=== PATIENT | female | born 1975 | race Caucasian/White ===

== ENCOUNTER 2017-04-03 14:57 | Emergency (ER) | payer MEDICARE, BC ==
[2017-04-03] MEDS ORDERED: Sodium Chloride 0.9% 1,000 ML IV ONE ×2 (15:07→20:06)
[2017-04-03] MEDS ORDERED: diphenhydrAMINE 50 MG/ML SDV IVPUSH ONE (15:07)
[2017-04-03] MEDS ORDERED: Sodium Chloride 0.9% 10 ML Syringe FLUSH PRN (15:08)
[2017-04-03] MEDS ORDERED: Ondansetron 4 MG/2 ML SDV IV ONE (15:08)
[2017-04-03] MEDS ORDERED: methylPREDNISolone Sodium Succinate 125 MG/2 ML SDV IVPUSH ONE (15:09)
--- NOTE | 2017-04-03 15:17 | EDM.PDOC ---
ED HPI GENERAL MEDICAL PROBLEM - General Chief Complaint: Abdominal Pain Stated Complaint: AMBULANCE Time Seen by Provider: 04/03/17 15:05 Source of Information: Reports: Patient, EMS History Limitations: Reports: No Limitations - History of Present Illness INITIAL COMMENTS - FREE TEXT/NARRATIVE: Patient comes emergency Department today by ambulance from home with complaints of generalized abdominal cramping and diarrhea. Patient has a long-standing history of lupus as well as ulcerative colitis. It feels like a typical ulcerative colitis flare for her. She has not had a ulcerative colitis flare for over a year. It started this morning. She has been unable to leave the bathroom as she has had continued diarrhea. She complains of generalized abdominal cramping. She did try some Bentyl at home without resolution. She has not had any fever or chills that is new to her. She denies any vomiting. Does complain of nausea. She denies any chest pain shortness of breath or difficulty breathing. She denies any flank pain. Denies any hematuria dysuria or urinary frequency. She has not been traveling anywhere recently nor has she been on any antibiotics recently. Onset: Today, Sudden Middle Abdomen Pain Score (Numeric/FACES): 6 - Related Data Allergies Allergy/AdvReac Type Severity Reaction Status Date / Time ciprofloxacin [From Cipro] Allergy Severe Anaphylactic Verified 10/20/15 19:17 Shock codeine Allergy Mild Rash Verified 04/03/17 15:07 venom-honey bee Allergy Anaphylactic Verified 10/20/15 19:17 [bee venom (honey bee)] Shock Home Meds: Home Meds Lansoprazole [Prevacid] 20 mg PO DAILY 02/25/13 [History] Metoprolol Succinate [Toprol XL 100mg] 100 mg PO DAILY PRN 02/25/13 [History] Nitrofurantoin Monohyd/M-Cryst [Macrobid 100 mg Capsule] 100 mg PO DAILY [History] Ondansetron [Zofran] 8 mg PO Q6H PRN 02/25/13 [History] fentaNYL [Duragesic] 75 each TD Q48H 02/25/13 [History] Cholecalciferol (Vitamin D3) [Vitamin D3] 50,000 unit PO ASDIRECTED 02/17/14 [ History] Potassium Chloride 20 meq PO TID 02/17/14 [History] Methotrexate Sodium [Methotrexate] 1 tab PO ASDIRECTED 05/06/15 [History] Promethazine HCl 1 tab PO Q6H PRN 07/31/14 [History] ALPRAZolam [Xanax] 1 mg PO DAILY PRN 10/21/15 [History] Dicyclomine [Bentyl] 20 mg PO QID PRN 10/21/15 [History] Gabapentin [Neurontin] 600 mg PO BID 10/21/15 [History] Nitroglycerin [Nitrostat] 0.4 mg SL Q5M PRN 10/21/15 [History] oxyCODONE HCl [Oxycodone HCl] 10 mg PO Q4HR PRN 10/21/15 [History] traZODone 200 mg PO BEDTIME 10/21/15 [History] Past Medical History HEENT History: Reports: Other (See Below) 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 Cardiovascular History: Reports: Heart Failure, Hypertension, Pacemaker, Other ( See Below) Other Cardiovascular History: Rodriguez parkinsons Respiratory History: Reports: None Gastrointestinal History: Reports: Colon Polyp, GERD, Other (See Below) Other Gastrointestinal History: ulcerative colitis Genitourinary History: Reports: Acute Renal Failure, Dialysis, Renal Calculus Other Genitourinary History: Has had "problems" with the right kidney [employer]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 Checks blood sugars due to Prednisone. Hematologic History: Reports: None Immunologic History: Reports: Immunosuppression, SLE, Other (See Below) ( Ulcerative colitis) Oncologic (Cancer) History: Reports: Hodgkin's Lymphoma Dermatologic History: Reports: None - Infectious Disease History Infectious Disease History: Reports: Chicken Pox - Past Surgical History Cardiovascular Surgical History: Reports: Cardiac Ablation, Pacer, Other (See Below) GI Surgical History: Reports: Cholecystectomy, Colon, Colonoscopy, EGD, Other ( See Below) Female Surgical History: Reports: Other (See Below) Musculoskeletal Surgical History: Reports: Other (See Below) Oncologic Surgical History: Reports: Other (See Below) Social & Family History - Family History Family Medical History: Noncontributory Cardiac: Reports: Arrhythmia, [place], Pacemaker Respiratory: Reports: COPD GI: Reports: Colon Polyps, Diverticulosis : Reports: None OBGYN: Reports: None Musculoskeletal: Reports: Arthritis Neurological: Reports: Alzheimers Disease, Other (See Below) Other Neurological Family History: females on dad's side Daniele messer. Started in their 40-50 Psychiatric: Reports: Anxiety Endocrine/Metabolic: Reports: Diabetes, type II Hematologic: Reports: None Immunologic: Reports: None Oncologic: Reports: Brain, Lung - Tobacco Use Smoking Status *Q: Never Smoker Years of Tobacco use: 4 Used Tobacco, but Quit: Yes Month Tobacco Last Used: 2 years Second Hand Smoke Exposure: No - Caffeine Use Caffeine Use: Reports: Soda - Alcohol Use Days Per Week of Alcohol Use: 0 - Recreational Drug Use Recreational Drug Use: No ED ROS GENERAL - Review of Systems Review Of Systems: ROS reveals no pertinent complaints other than HPI. ED EXAM, GI/ABD - Physical Exam Exam: See Below Exam Limited By: No Limitations General Appearance: Alert, Other (Quite pale.) Eyes: Bilateral: Normal Appearance, EOMI Ears: Normal External Exam, Normal Canal, Hearing Grossly Normal, Normal TMs Nose: Normal Inspection, Normal Mucosa Throat/Mouth: Normal Inspection, Normal Lips, Normal Teeth, Other (Lips are dry and cracked.) Head: Atraumatic, Normocephalic Neck: Normal Inspection, Supple, Non-Tender, Full Range of Motion Respiratory/Chest: No Respiratory Distress, Lungs Clear, Normal Breath Sounds, No Accessory Muscle Use Cardiovascular: Normal Peripheral Pulses, Regular Rate, Rhythm, No Edema, No Murmur, No Rub, Tachycardia (115) GI/Abdominal Exam: Soft, No Organomegaly, No Distention, Other (Generalized tenderness throughout.). No: Normal Bowel Sounds (Hyperactive), Distended, Guarding, Rigid, Rebound, Tender (Female) Exam: Deferred Rectal (Female) Exam: Deferred Back Exam: Normal Inspection. No: CVA Tenderness (L), CVA Tenderness (R) Extremities: Normal Inspection, Normal Range of Motion Neurological: Alert, Oriented Psychiatric: Normal Affect, Normal Mood Skin Exam: Dry, Intact, Cool, Pallor Lymphatic: No Adenopathy Course - Vital Signs Last Recorded V/S: Last Vital Signs Temp 36.6 C 04/03/17 18:55 Pulse 76 01/07/18 18:55 Resp 18 04/03/17 18:55 BP 81/46 L 04/03/17 18:55 Pulse Ox 91 L 04/03/17 18:55 - Orders/Labs/Meds Orders: Active Orders 24 hr Category Date Time Status Peripheral IV Care [RC] . DIRECTED Care 04/03/17 15:08 Active C DIFFICILE TOXIN BY PCR [MREF] Stat Lab 04/03/17 18:03 Received CULTURE BLOOD [BC] Stat Lab 04/03/17 19:35 Ordered CULTURE BLOOD [BC] Stat Lab 04/03/17 19:35 Ordered CULTURE STOOL [RM] Stat Lab 04/03/17 18:03 Received CULTURE URINE [RM] Stat Lab 04/03/17 19:29 Ordered SHIGA TOXIN 1 & 2 [MREF] Stat Lab 04/03/17 18:03 Received Sodium Chloride 0.9% @ 150 MLS/HR (1000ml) Med 04/03/17 19:30 Ordered Sodium Chloride 0.9% [Normal Saline] 1,000 ml IV ASDIRECTED Sodium Chloride 0.9% [Normal Saline] 1,000 ml Med 04/03/17 17:45 Active IV ASDIRECTED Sodium Chloride 0.9% [Saline Flush] Med 04/03/17 15:08 Active 10 ml FLUSH ASDIRECTED PRN cefTRIAXone [Rocephin] 1,000 mg Med 04/03/17 19:54 Ordered Sodium Chloride 0.9% [Normal Saline] 50 ml IV ONETIME Blood Culture x2 Reflex Set [OM.PC] Stat Oth 04/03/17 19:35 Ordered Peripheral IV Insertion Adult [OM.PC] Stat Oth 04/03/17 15:07 Ordered Medication Orders Sodium Chloride (Normal Saline) 1,000 mls @ 999 mls/hr IV ASDIRECTED [facility] Last Admin: 04/03/17 17:36 Dose: 999 mls/hr Sodium Chloride (Normal Saline) 1,000 mls @ 150 mls/hr IV ASDIRECTED [facility] Last Admin: 04/03/17 19:35 Dose: 150 mls/hr Ceftriaxone Sodium 1,000 mg/ (Sodium Chloride) 50 mls @ 100 mls/hr IV ONETIME ONE Stop: 04/03/17 20:23 Sodium Chloride (Saline Flush) 10 ml FLUSH ASDIRECTED PRN PRN Reason: Keep Vein Open Last Admin: 04/03/17 15:29 Dose: 10 ml Labs: Laboratory Tests 04/03/17 04/03/17 04/03/17 Range/Units 15:25 15:25 15:25 WBC 16.7 H (5.0-10.0) 10^3/uL RBC 5.03 (4.2-5.4) 10^6/uL Hgb 13.9 (12.0-16.0) g/dL Hct 43.5 (37.0-47.0) % MCV 86.5 (80-100) fL MCH 27.6 (27.0-34.0) pg MCHC 32.0 L (33.0-35.0) g/dL Plt Count 336 (150-450) 10^3/uL Neut % (Auto) 89.5 H (42.2-75.2) % Lymph % (Auto) 8.7 L (20.5-50.1) % [place] % (Auto) 1.6 L (2-8) % Eos % (Auto) 0.1 L (1.0-3.0) % Baso % (Auto) 0.1 (0.0-1.0) % ESR (0-20) mm/hr Sodium 137 (135-145) mmol/L Potassium 3.8 (3.6-5.0) mmol/L Chloride 102 (101-111) mmol/L Carbon Dioxide 24.0 (21.0-31.0) mmol/L Anion Gap 14.8 BUN 11 (7-18) mg/dL Creatinine 0.9 (0.6-1.3) mg/dL Est Cr Clr Drug Dosing 65.72 mL/min Estimated GFR (MDRD) > 60 BUN/Creatinine Ratio 12.22 Glucose 120 H (74-105) mg/dL Lactic Acid 2.4 H (0.5-2.2) mmol/L Calcium 9.3 (8.4-10.2) mg/dl Total Bilirubin 0.5 (0.2-1.0) mg/dL AST 34 (10-42) IU/L ALT 20 (10-60) IU/L Alkaline Phosphatase 76 (42-121) IU/L Creatine Kinase (26-174) IU/L C-Reactive Protein (0.0-1.3) mg/dL Total Protein 6.7 (6.7-8.2) g/dl Albumin 3.8 (3.2-5.5) g/dl Globulin 2.9 Albumin/Globulin Ratio 1.31 Urine Color (YELLOW) Urine Appearance (CLEAR) Urine pH (5.0-9.0) Ur Specific [place] (1.005-1.030) Urine Protein (NEGATIVE) Urine Glucose (UA) (NEGATIVE) Urine Ketones (NEGATIVE) Urine Occult Blood (NEGATIVE) Urine Nitrite (NEGATIVE) Urine Bilirubin (NEGATIVE) Urine Urobilinogen (0.2-1.0) mg/dL Ur Leukocyte Esterase (NEGATIVE) Urine RBC /HPF Urine WBC (0-5/HPF) /HPF Ur Epithelial Cells /HPF Calcium Oxalate Crystal /HPF Urine Bacteria (0-FEW/HPF) /HPF Urinalysis Comment Urine HCG, Qual 04/03/17 04/03/17 04/03/17 Range/Units 15:25 15:25 15:25 WBC (5.0-10.0) 10^3/uL RBC (4.2-5.4) 10^6/uL Hgb (12.0-16.0) g/dL Hct (37.0-47.0) % MCV (80-100) fL MCH (27.0-34.0) pg MCHC (33.0-35.0) g/dL Plt Count (150-450) 10^3/uL Neut % (Auto) (42.2-75.2) % Lymph % (Auto) (20.5-50.1) % [place] % (Auto) (2-8) % Eos % (Auto) (1.0-3.0) % Baso % (Auto) (0.0-1.0) % ESR 5 (0-20) mm/hr Sodium (135-145) mmol/L Potassium (3.6-5.0) mmol/L Chloride (101-111) mmol/L Carbon Dioxide (21.0-31.0) mmol/L Anion Gap BUN (7-18) mg/dL Creatinine (0.6-1.3) mg/dL Est Cr Clr Drug Dosing mL/min Estimated GFR (MDRD) BUN/Creatinine Ratio Glucose (74-105) mg/dL Lactic Acid (0.5-2.2) mmol/L Calcium (8.4-10.2) mg/dl Total Bilirubin (0.2-1.0) mg/dL AST (10-42) IU/L ALT (10-60) IU/L Alkaline Phosphatase (42-121) IU/L Creatine Kinase 78 (26-174) IU/L C-Reactive Protein < 0.5 (0.0-1.3) mg/dL Total Protein (6.7-8.2) g/dl Albumin (3.2-5.5) g/dl Globulin Albumin/Globulin Ratio Urine Color (YELLOW) Urine Appearance (CLEAR) Urine pH (5.0-9.0) Ur Specific [place] (1.005-1.030) Urine Protein (NEGATIVE) Urine Glucose (UA) (NEGATIVE) Urine Ketones (NEGATIVE) Urine Occult Blood (NEGATIVE) Urine Nitrite (NEGATIVE) Urine Bilirubin (NEGATIVE) Urine Urobilinogen (0.2-1.0) mg/dL Ur Leukocyte Esterase (NEGATIVE) Urine RBC /HPF Urine WBC (0-5/HPF) /HPF Ur Epithelial Cells /HPF Calcium Oxalate Crystal /HPF Urine Bacteria (0-FEW/HPF) /HPF Urinalysis Comment Urine HCG, Qual 04/03/17 04/03/17 Range/Units 19:09 19:09 WBC (5.0-10.0) 10^3/uL RBC (4.2-5.4) 10^6/uL Hgb (12.0-16.0) g/dL Hct (37.0-47.0) % MCV (80-100) fL MCH (27.0-34.0) pg MCHC (33.0-35.0) g/dL Plt Count (150-450) 10^3/uL Neut % (Auto) (42.2-75.2) % Lymph % (Auto) (20.5-50.1) % [place] % (Auto) (2-8) % Eos % (Auto) (1.0-3.0) % Baso % (Auto) (0.0-1.0) % ESR (0-20) mm/hr Sodium (135-145) mmol/L Potassium (3.6-5.0) mmol/L Chloride (101-111) mmol/L Carbon Dioxide (21.0-31.0) mmol/L Anion Gap BUN (7-18) mg/dL Creatinine (0.6-1.3) mg/dL Est Cr Clr Drug Dosing mL/min Estimated GFR (MDRD) BUN/Creatinine Ratio Glucose (74-105) mg/dL Lactic Acid (0.5-2.2) mmol/L Calcium (8.4-10.2) mg/dl Total Bilirubin (0.2-1.0) mg/dL AST (10-42) IU/L ALT (10-60) IU/L Alkaline Phosphatase (42-121) IU/L Creatine Kinase (26-174) IU/L C-Reactive Protein (0.0-1.3) mg/dL Total Protein (6.7-8.2) g/dl Albumin (3.2-5.5) g/dl Globulin Albumin/Globulin Ratio Urine Color Mary (YELLOW) Urine Appearance Turbid (CLEAR) Urine pH 5.0 (5.0-9.0) Ur Specific [place] 1.020 (1.005-1.030) Urine Protein >=300 H (NEGATIVE) Urine Glucose (UA) 100 H (NEGATIVE) Urine Ketones 40 H (NEGATIVE) Urine Occult Blood Trace-lysed H (NEGATIVE) Urine Nitrite Positive H (NEGATIVE) Urine Bilirubin Large H (NEGATIVE) Urine Urobilinogen >=8.0 H (0.2-1.0) mg/dL Ur Leukocyte Esterase Large H (NEGATIVE) Urine RBC 10-20 H /HPF Urine WBC 0-5 (0-5/HPF) /HPF Ur Epithelial Cells Moderate H /HPF Calcium Oxalate Crystal Few H /HPF Urine Bacteria Moderate H (0-FEW/HPF) /HPF Urinalysis Comment Urine HCG, Qual Negative Meds: Medications Generic Name Dose Route Start Last Admin Trade Name Freq PRN Reason Stop Dose Admin Sodium Chloride 1,000 mls @ 999 mls/hr 04/03/17 17:45 04/03/17 17:36 Normal Saline IV 999 mls/hr ASDIRECTED HERRERA Administration Sodium Chloride 1,000 mls @ 150 mls/hr 04/03/17 19:30 04/03/17 19:35 Normal Saline IV 150 mls/hr ASDIRECTED HERRERA Administration Ceftriaxone Sodium 1,000 mg/ 50 mls @ 100 mls/hr 04/03/17 19:54 Sodium Chloride IV 04/03/17 20:23 ONETIME ONE Sodium Chloride 10 ml 04/03/17 15:08 04/03/17 15:29 Saline Flush FLUSH 10 ml ASDIRECTED PRN Administration Keep Vein Open Discontinued Medications Generic Name Dose Route Start Last Admin Trade Name Freq PRN Reason Stop Dose Admin Diphenhydramine HCl 25 mg 04/03/17 15:07 04/03/17 15:35 Benadryl IVPUSH 04/03/17 15:08 25 mg ONETIME ONE Administration Hydromorphone HCl 1 mg 04/03/17 16:55 04/03/17 17:06 Dilaudid IVPUSH 04/03/17 16:56 1 mg ONETIME ONE Administration Hydromorphone HCl 1 mg 04/03/17 19:36 04/03/17 19:40 Dilaudid IVPUSH 04/03/17 19:37 1 mg ONETIME ONE Administration Sodium Chloride 1,000 mls @ 999 mls/hr 04/03/17 15:07 04/03/17 15:30 Normal Saline IV 04/03/17 16:07 999 mls/hr .BOLUS ONE Administration Ceftriaxone Sodium 2 mg/ 50 mls @ 100 mls/hr 04/03/17 19:31 Sodium Chloride IV 04/03/17 20:00 ONETIME ONE Ketorolac Tromethamine 30 mg 04/03/17 15:50 04/03/17 16:18 Toradol IVPUSH 04/03/17 15:51 30 mg ONETIME ONE Administration Methylprednisolone Sodium Succinate 125 mg 04/03/17 15:09 04/03/17 15:38 Solu-Medrol IVPUSH 04/03/17 15:10 125 mg ONETIME ONE Administration Ondansetron HCl 4 mg 04/03/17 15:08 04/03/17 15:31 Zofran IV 04/03/17 15:09 4 mg ONETIME ONE Administration Departure - Departure Time of Disposition: 20:00 Disposition: DC/Tfer to [facility] 02 Clinical Impression: Pyelonephritis, Dehydration Lupus (systemic lupus erythematosus) Qualifiers: Systemic lupus erythematosus type: unspecified Systemic lupus erythematosus organ involvement: unspecified Qualified Code(s): M32.9 - Systemic lupus erythematosus, unspecified Ulcerative colitis Qualifiers: Ulcerative colitis location: unspecified ulcerative colitis location Digestive disease complication type: unspecified complication Qualified Code(s): K51.919 - Ulcerative colitis, unspecified with unspecified complications - Discharge Information Forms: ED Department Discharge, Interfacility Transfer EMTALA ED Communication - Discussed Case With (1) Discussed Case With (1): Admitting Provider (Spoke with hospitalist here and he does not feel comfortable with admitting her here. Called and spoke with DR. Fernandez at [facility] in [place]. HPI ER COURSE findings and concerns were relayed to him. He accepted the patient in transfer. He does not want Gentamincin as the patient request only wants Rocephin given at this time.) - My Orders Last 24 Hours: My Active Orders 04/03/17 15:07 Peripheral IV Insertion Adult [OM.PC] Stat 04/03/17 15:08 Peripheral IV Care [RC] . DIRECTED Sodium Chloride 0.9% [Saline Flush] 10 ml FLUSH ASDIRECTED PRN 04/03/17 17:45 Sodium Chloride 0.9% [Normal Saline] 1,000 ml IV ASDIRECTED 04/03/17 18:03 C DIFFICILE TOXIN BY PCR [MREF] Stat CULTURE STOOL [RM] Stat SHIGA TOXIN 1 & 2 [MREF] Stat 04/03/17 19:29 CULTURE URINE [RM] Stat 04/03/17 19:30 Sodium Chloride 0.9% @ 150 MLS/HR (1000ml) Sodium Chloride 0.9% [Normal Saline] 1,000 ml IV ASDIRECTED 04/03/17 19:35 CULTURE BLOOD [BC] Stat CULTURE BLOOD [BC] Stat Blood Culture x2 Reflex Set [OM.PC] Stat 04/03/17 19:54 cefTRIAXone [Rocephin] 1,000 mg Sodium Chloride 0.9% [Normal Saline] 50 ml IV ONETIME - Assessment/Plan Last 24 Hours: My Active Orders 04/03/17 15:07 Peripheral IV Insertion Adult [OM.PC] Stat 04/03/17 15:08 Peripheral IV Care [RC] . DIRECTED Sodium Chloride 0.9% [Saline Flush] 10 ml FLUSH ASDIRECTED PRN 04/03/17 17:45 Sodium Chloride 0.9% [Normal Saline] 1,000 ml IV ASDIRECTED 04/03/17 18:03 C DIFFICILE TOXIN BY PCR [MREF] Stat CULTURE STOOL [RM] Stat SHIGA TOXIN 1 & 2 [MREF] Stat 04/03/17 19:29 CULTURE URINE [RM] Stat 04/03/17 19:30 Sodium Chloride 0.9% @ 150 MLS/HR (1000ml) Sodium Chloride 0.9% [Normal Saline] 1,000 ml IV ASDIRECTED 04/03/17 19:35 CULTURE BLOOD [BC] Stat CULTURE BLOOD [BC] Stat Blood Culture x2 Reflex Set [OM.PC] Stat 04/03/17 19:54 cefTRIAXone [Rocephin] 1,000 mg Sodium Chloride 0.9% [Normal Saline] 50 ml IV ONETIME Assessment:: PYelonephritis of a immunocomprimised patient. End Stage SLE Ulcerative Collitis-?acute flare. Dehydration. Plan: Urine and blood cultures pending on transfer. Transfer to [facility] Dr. Fernandez he requested rocephin to be started. Continue IV fluids, Ambulance to [facility].
[2017-04-03] MEDS ORDERED: Ketorolac 30 MG/ML SDV IVPUSH ONE (15:50)
[2017-04-03 16:06] LABS: CHLORIDE,CL 102 mmol/L (101-111); SODIUM,NA 137 mmol/L (135-145)
[2017-04-03] MEDS ORDERED: HYDROmorphone 1 MG/ML Syringe IVPUSH ONE ×2 (16:55→19:36)
[2017-04-03] MEDS ORDERED: Sodium Chloride 0.9% 1,000 ML IV SCH ×2 (17:45→19:30)
[2017-04-03] MEDS ORDERED: cefTRIAXone 1,000 MG in Sodium Chloride 0.9% 50 ML IV ONE (19:54)
[2017-04-03] MEDS ORDERED: cefTRIAXone 1 GM Vial IVPUSH ONE (19:57)
[2017-04-03 20:00] VITALS: BP 88/64
== END 2017-04-03 20:40 ==
LOC: DL.ED 14:57
DX: M32.15 Tubulo-interstitial nephropathy in systemic lupus erythematosus (principal); M32.9 Systemic lupus erythematosus, unspecified; K51.919 Ulcerative colitis, unspecified with unspecified complications; E86.0 Dehydration; I11.0 Hypertensive heart disease with heart failure; I50.9 Heart failure, unspecified; Z88.1 Allergy status to other antibiotic agents; Z88.5 Allergy status to narcotic agent; Z91.030 Bee allergy status; Z79.899 Other long term (current) drug therapy
CPT/HCPCS: 36415; 80053; 81001; 81025; 82550; 83605; 85025; 85651; 86140; 87040; 87045; 87046; 87086; 87493; 87899; 96361; 96374; 96375; 96376; 99285; J0696; J1170; J1200; J1885; J2405; J2930; J7030; J7050; 87077; 87186

== ENCOUNTER 2017-09-06 17:45 | Emergency (ER) | payer BC, MEDICARE ==
[2017-09-06 18:02] VITALS: BP 133/89
--- NOTE | 2017-09-06 18:59 | EDM.PDOC ---
Scribed by Pamela Cramer 09/06/17 [id number] for Osmin Marcum MD ED HPI GENERAL MEDICAL PROBLEM - General Chief Complaint: Lower Extremity Injury/Pain Stated Complaint: [id number] RT FOOT- FELL Time Seen by Provider: 09/06/17 18:17 Source of Information: Reports: Patient, RN, RN Notes Reviewed History Limitations: Reports: No Limitations - History of Present Illness INITIAL COMMENTS - FREE TEXT/NARRATIVE: Patient presents to ER with complaint of left ankle pain sustained about 4 hours when patient stepped on an uneven depression in the lawn. Denies any other injury. She has a history of a prior broken ankle but she does not recall which one. Onset: Today Duration: Getting Worse Location: Reports: Lower Extremity, Left Quality: Reports: Ache Severity: Moderate Improves with: Reports: None Worsens with: Reports: None Associated Symptoms: Reports: No Other Symptoms Left Ankle Pain Score (Numeric/FACES): 7 - Related Data Allergies Allergy/AdvReac Type Severity Reaction Status Date / Time ciprofloxacin [From Cipro] Allergy Severe Anaphylactic Verified 10/20/15 19:17 Shock codeine Allergy Mild Rash Verified 04/03/17 15:07 venom-honey bee Allergy Anaphylactic Verified 10/20/15 19:17 [bee venom (honey bee)] Shock Home Meds: Home Meds Lansoprazole [Prevacid] 20 mg PO DAILY 02/25/13 [History] Metoprolol Succinate [Toprol XL 100mg] 100 mg PO DAILY PRN 02/25/13 [History] Nitrofurantoin Monohyd/M-Cryst [Macrobid 100 mg Capsule] 100 mg PO DAILY [History] Ondansetron [Zofran] 8 mg PO Q6H PRN 02/25/13 [History] fentaNYL [Duragesic] 75 each TD Q48H 02/25/13 [History] Cholecalciferol (Vitamin D3) [Vitamin D3] 50,000 unit PO ASDIRECTED 02/17/14 [ History] Potassium Chloride 20 meq PO TID 02/17/14 [History] Methotrexate Sodium [Methotrexate] 1 tab PO ASDIRECTED 07/31/14 [History] Promethazine HCl 1 tab PO Q6H PRN 07/31/14 [History] ALPRAZolam [Xanax] 1 mg PO DAILY PRN 10/21/15 [History] Dicyclomine [Bentyl] 20 mg PO QID PRN 10/21/15 [History] Gabapentin [Neurontin] 600 mg PO BID 10/21/15 [History] Nitroglycerin [Nitrostat] 0.4 mg SL Q5M PRN 10/21/15 [History] oxyCODONE HCl [Oxycodone HCl] 10 mg PO Q4HR PRN 10/21/15 [History] traZODone 200 mg PO BEDTIME 10/21/15 [History] Past Medical History HEENT History: Reports: Other (See Below) 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 Cardiovascular History: Reports: Heart Failure, Hypertension, Pacemaker, Other ( See Below) Other Cardiovascular History: Rodriguez parkinsons Respiratory History: Reports: None Gastrointestinal History: Reports: Colon Polyp, GERD, Other (See Below) Other Gastrointestinal History: ulcerative colitis Genitourinary History: Reports: Acute Renal Failure, Dialysis, Renal Calculus Other Genitourinary History: Has had "problems" with the right kidney 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 Checks blood sugars due to Prednisone. Hematologic History: Reports: None Immunologic History: Reports: Immunosuppression, SLE, Other (See Below) Oncologic (Cancer) History: Reports: Hodgkin's Lymphoma Dermatologic History: Reports: None - Infectious Disease History Infectious Disease History: Reports: Chicken Pox - Past Surgical History Cardiovascular Surgical History: Reports: Cardiac Ablation, Pacer, Other (See Below) GI Surgical History: Reports: Cholecystectomy, Colon, Colonoscopy, EGD, Other ( See Below) Female Surgical History: Reports: Other (See Below) Musculoskeletal Surgical History: Reports: Other (See Below) Oncologic Surgical History: Reports: Other (See Below) Social & Family History - Family History Family Medical History: Noncontributory Cardiac: Reports: Arrhythmia, DC, Pacemaker Respiratory: Reports: COPD GI: Reports: Colon Polyps, Diverticulosis : Reports: None OBGYN: Reports: None Musculoskeletal: Reports: Arthritis Neurological: Reports: Alzheimers Disease, Other (See Below) Other Neurological Family History: females on dad's side Daniele messer. Started in their 40-50 Psychiatric: Reports: Anxiety Endocrine/Metabolic: Reports: Diabetes, type II Hematologic: Reports: None Immunologic: Reports: None Oncologic: Reports: Brain, Lung - Tobacco Use Smoking Status *Q: Never Smoker - Caffeine Use Caffeine Use: Reports: Soda - Recreational Drug Use Recreational Drug Use: No - Living Situation & Occupation Living situation: Reports: with Family Review of Systems - Review of Systems Review Of Systems: ROS reveals no pertinent complaints other than HPI. ED EXAM, GENERAL - Physical Exam Exam: See Below Exam Limited By: No Limitations General Appearance: Other (chronically ill appearing.) Head: Atraumatic, Normocephalic Neck: Full Range of Motion Respiratory/Chest: No Respiratory Distress Extremities: No Pedal Edema, Normal Capillary Refill, Joint Swelling (mild left ankle with lateral tenderness to palpation. No visible bruising. Skin is intact. ), Limited Range of Motion (left ankle) Neurological: Alert, Oriented, No Motor/Sensory Deficits Course - Vital Signs Last Recorded V/S: Last Vital Signs Temp 37.1 C 09/06/17 18:01 Pulse 130 H 09/06/17 18:01 Resp 18 09/06/17 18:01 BP 133/89 09/06/17 18:01 Pulse Ox 100 09/06/17 18:01 - Radiology Interpretation Free Text/Narrative:: Left ankle x-ray: No fracture seen. See rad report. Departure - Departure Time of Disposition: 18:55 Disposition: Home, Self-Care 01 Condition: Good Clinical Impression: Ankle sprain Qualifiers: Encounter type: initial encounter Involved ligament of ankle: unspecified ligament Laterality: left Qualified Code(s): S93.402A - Sprain of unspecified ligament of left ankle, initial encounter - Discharge Information Instructions: Ankle Sprain, [id number] Referrals: PCP,None [Primary Care Provider] - Forms: ED Department Discharge Additional Instructions: Rest, ice and elevate to reduce swelling. Use crutches and Erick wrap as needed for comfort. Follow up in clinic if not improving as expected in 7 to 10 days. I have read and agree with the documentation that has been completed regarding this visit. By signing this record, I attest that the documentation was completed in my physical presence and is an accurate record of the encounter.
== END 2017-09-06 19:06 | disposition home or self-care (01) ==
LOC: DL.ED 17:45
DX: S93.402A Sprain of unspecified ligament of left ankle, initial encounter (principal); I11.0 Hypertensive heart disease with heart failure; I50.9 Heart failure, unspecified; E03.9 Hypothyroidism, unspecified; Z88.1 Allergy status to other antibiotic agents; Z88.5 Allergy status to narcotic agent; Z91.030 Bee allergy status; Z79.899 Other long term (current) drug therapy; X58.XXXA Exposure to other specified factors, initial encounter
CPT/HCPCS: 73610-LT; 99283

== ENCOUNTER 2017-12-13 13:54 | Emergency (ER) | payer BC, MEDICARE ==
--- NOTE | 2017-12-13 14:32 | EDM.PDOC ---
<MarlaLee Galina - Last Filed: 12/13/17 18:44> ED HPI GENERAL MEDICAL PROBLEM - General Chief Complaint: Gastrointestinal Problem Stated Complaint: COLITIS FLARE UP [phone] Time Seen by Provider: 12/13/17 14:20 Source of Information: Reports: Patient History Limitations: Reports: No Limitations - History of Present Illness INITIAL COMMENTS - FREE TEXT/NARRATIVE: This 42 yo female patient reports to the ED with increased abdominal pain, bloating and a fever. The patient has a history of ulcerative colitis, normally has 20 small bowel movements per day, but has not had a bowel movement in 2 weeks. The patient reports she has been taking her medications, but has not been getting any symptom relief. The patient reports she attempted to do enemas at home yesterday, but was unsuccessful. The patient reports that she did spike a fever at home (103) and took some ibuprofen which brought her temp down. The patient reports she has noticed the increased bloating of her abdomen over the past week, but the pain has gotten too bad for her to manage on her own. The patient reports that she has not been able to eat anything for the past several days due to her current symptoms. Onset: Gradual Duration: Week(s):, Constant, Getting Worse Location: Reports: Abdomen Quality: Reports: Ache, Sharp Severity: Severe Improves with: Reports: None Worsens with: Reports: None Associated Symptoms: Reports: Nausea/Vomiting Upper Abdomen Pain Score (Numeric/FACES): 5 - Related Data Allergies Allergy/AdvReac Type Severity Reaction Status Date / Time ciprofloxacin [From Cipro] Allergy Severe Anaphylactic Verified 12/13/17 14:01 Shock codeine Allergy Mild Rash Verified 12/13/17 14:01 venom-honey bee Allergy Anaphylactic Verified 12/13/17 14:01 [bee venom (honey bee)] Shock Home Meds: Home Meds Lansoprazole [Prevacid] 20 mg PO DAILY 02/25/13 [History] Metoprolol Succinate [Toprol XL 100mg] 100 mg PO DAILY PRN 02/25/13 [History] Nitrofurantoin Monohyd/M-Cryst [Macrobid 100 mg Capsule] 100 mg PO DAILY [History] Ondansetron [Zofran] 8 mg PO Q6H PRN 02/25/13 [History] fentaNYL [Duragesic] 75 each TD Q48H 02/25/13 [History] Cholecalciferol (Vitamin D3) [Vitamin D3] 50,000 unit PO ASDIRECTED 02/17/14 [ History] Potassium Chloride 20 meq PO TID 02/17/14 [History] Methotrexate Sodium [Methotrexate] 1 tab PO ASDIRECTED 07/31/14 [History] Promethazine HCl 1 tab PO Q6H PRN 07/31/14 [History] ALPRAZolam [Xanax] 1 mg PO DAILY PRN 10/21/15 [History] Dicyclomine [Bentyl] 20 mg PO QID PRN 10/21/15 [History] Gabapentin [Neurontin] 600 mg PO BID 10/21/15 [History] Nitroglycerin [Nitrostat] 0.4 mg SL Q5M PRN 10/21/15 [History] oxyCODONE HCl [Oxycodone HCl] 10 mg PO Q4HR PRN 10/21/15 [History] traZODone 200 mg PO BEDTIME 10/21/15 [History] Bisacodyl [Dulcolax] 10 mg PO BID PRN 12/13/17 [History] Docusate Sodium [Colace] 200 mg PO BID PRN 12/13/17 [History] Indomethacin [Indocin] 0 mg PO DAILY 12/13/17 [History] Past Medical History HEENT History: Reports: Other (See Below) 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 Cardiovascular History: Reports: Heart Failure, Hypertension, Pacemaker, Other ( See Below) Other Cardiovascular History: Rodriguez parkinsons Respiratory History: Reports: None, Cystic Fibrosis Gastrointestinal History: Reports: Colon Polyp, GERD, Other (See Below) Other Gastrointestinal History: ulcerative colitis Genitourinary History: Reports: Acute Renal Failure, Renal Calculus Other Genitourinary History: Has had "problems" with the right kidney 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 Checks blood sugars due to Prednisone. Hematologic History: Reports: None Immunologic History: Reports: Immunosuppression, SLE, Other (See Below) Oncologic (Cancer) History: Reports: Hodgkin's Lymphoma Dermatologic History: Reports: None - Infectious Disease History Infectious Disease History: Reports: Chicken Pox - Past Surgical History Cardiovascular Surgical History: Reports: Cardiac Ablation, Pacer, Other (See Below) GI Surgical History: Reports: Cholecystectomy, Colon, Colonoscopy, EGD, Other ( See Below) Social & Family History - Family History Family Medical History: Noncontributory Cardiac: Reports: Arrhythmia, [place], Pacemaker Respiratory: Reports: COPD GI: Reports: Colon Polyps, Diverticulosis : Reports: None OBGYN: Reports: None Musculoskeletal: Reports: Arthritis Neurological: Reports: Alzheimers Disease, Other (See Below) Other Neurological Family History: females on dad's side Daniele alzheimernannette. Started in their 40-50 Psychiatric: Reports: Anxiety Endocrine/Metabolic: Reports: Diabetes, type II Hematologic: Reports: None Immunologic: Reports: None Oncologic: Reports: Brain, Lung - Tobacco Use Smoking Status *Q: Never Smoker - Caffeine Use Caffeine Use: Reports: Soda - Recreational Drug Use Recreational Drug Use: No - Living Situation & Occupation Living situation: Reports: with Family ED ROS GENERAL - Review of Systems Review Of Systems: ROS reveals no pertinent complaints other than HPI. ED EXAM, GI/ABD - Physical Exam Exam: See Below Exam Limited By: No Limitations General Appearance: Alert, WD/WN, Severe Distress Eyes: Bilateral: Normal Appearance, EOMI Ears: Normal External Exam, Normal Canal, Hearing Grossly Normal, Normal TMs Nose: Normal Inspection, Normal Mucosa, No Blood Throat/Mouth: Normal Inspection, Normal Lips, Normal Teeth, Normal Gums, Normal Oropharynx, Normal Voice, No Airway Compromise Head: Atraumatic, Normocephalic Neck: Normal Inspection, Supple, Non-Tender, Full Range of Motion Respiratory/Chest: No Respiratory Distress, Lungs Clear, Normal Breath Sounds, No Accessory Muscle Use, Chest Non-Tender Cardiovascular: No Edema, No Gallop, No JVD, No Murmur, No Rub, Tachycardia GI/Abdominal Exam: Distended, Tender, Abnormal Bowel Sounds (Hypoactive) (Female) Exam: Deferred Rectal (Female) Exam: Deferred Back Exam: Normal Inspection, Full Range of Motion, NT Extremities: Normal Inspection, Normal Range of Motion, Non-Tender, Normal Capillary Refill, No Pedal Edema Neurological: Alert, Oriented, CN II-XII Intact, Normal Cognition, Normal Gait, Normal Reflexes, No Motor/Sensory Deficits Psychiatric: Normal Affect, Normal Mood Skin Exam: Warm, Dry, Intact, Normal Color, No Rash Lymphatic: No Adenopathy Course - Vital Signs Last Recorded V/S: Last Vital Signs Temp 100.2 F 12/13/17 22:35 Pulse 104 H 12/13/17 22:35 Resp 18 12/13/17 22:35 BP 107/58 L 12/13/17 22:35 Pulse Ox 98 12/13/17 22:35 - Orders/Labs/Meds Labs: Laboratory Tests 12/13/17 12/13/17 12/13/17 Range/Units 14:47 14:47 14:47 WBC (5.0-10.0) 10^3/uL RBC (4.2-5.4) 10^6/uL Hgb (12.0-16.0) g/dL Hct (37.0-47.0) % MCV (80-100) fL MCH (27.0-34.0) pg MCHC (33.0-35.0) g/dL Plt Count (150-450) 10^3/uL Neut % (Auto) (42.2-75.2) % Lymph % (Auto) (20.5-50.1) % [place] % (Auto) (2-8) % Eos % (Auto) (1.0-3.0) % Baso % (Auto) (0.0-1.0) % Sodium (135-145) mmol/L Potassium (3.6-5.0) mmol/L Chloride (101-111) mmol/L Carbon Dioxide (21.0-31.0) mmol/L Anion Gap BUN (7-18) mg/dL Creatinine (0.6-1.3) mg/dL Est Cr Clr Drug Dosing mL/min Estimated GFR (MDRD) BUN/Creatinine Ratio Glucose (74-105) mg/dL Lactic Acid 1.5 (0.5-2.2) mmol/L Calcium (8.4-10.2) mg/dl Total Bilirubin (0.2-1.0) mg/dL AST (10-42) IU/L ALT (10-60) IU/L Alkaline Phosphatase (42-121) IU/L Troponin I (0.00-0.02) ng/ml C-Reactive Protein 5.0 H (0.0-1.3) mg/dL Total Protein (6.7-8.2) g/dl Albumin (3.2-5.5) g/dl Globulin Albumin/Globulin Ratio Amylase 37 (28-100) U/L Lipase 19 L (22-51) U/L 12/13/17 12/13/17 Range/Units 14:47 14:47 WBC 16.6 H (5.0-10.0) 10^3/uL RBC 4.50 (4.2-5.4) 10^6/uL Hgb 11.8 L D (12.0-16.0) g/dL Hct 37.0 (37.0-47.0) % MCV 82.2 D (80-100) fL MCH 26.2 L (27.0-34.0) pg MCHC 31.9 L (33.0-35.0) g/dL Plt Count 327 (150-450) 10^3/uL Neut % (Auto) 84.6 H (42.2-75.2) % Lymph % (Auto) 6.4 L (20.5-50.1) % [place] % (Auto) 7.9 (2-8) % Eos % (Auto) 1.0 (1.0-3.0) % Baso % (Auto) 0.1 (0.0-1.0) % Sodium 134 L (135-145) mmol/L Potassium 3.5 L (3.6-5.0) mmol/L Chloride 100 L (101-111) mmol/L Carbon Dioxide 25.0 (21.0-31.0) mmol/L Anion Gap 12.5 BUN 9 (7-18) mg/dL Creatinine 0.8 (0.6-1.3) mg/dL Est Cr Clr Drug Dosing 77.33 mL/min Estimated GFR (MDRD) > 60 BUN/Creatinine Ratio 11.25 Glucose 112 H (74-105) mg/dL Lactic Acid (0.5-2.2) mmol/L Calcium 8.5 (8.4-10.2) mg/dl Total Bilirubin 0.2 (0.2-1.0) mg/dL AST 22 (10-42) IU/L ALT 16 (10-60) IU/L Alkaline Phosphatase 91 (42-121) IU/L Troponin I < 0.02 (0.00-0.02) ng/ml C-Reactive Protein (0.0-1.3) mg/dL Total Protein 7.4 (6.7-8.2) g/dl Albumin 3.8 (3.2-5.5) g/dl Globulin 3.6 Albumin/Globulin Ratio 1.06 Amylase (28-100) U/L Lipase (22-51) U/L Meds: Medications Discontinued Medications Generic Name Dose Route Start Last Admin Trade Name Freq PRN Reason Stop Dose Admin Alprazolam 0.5 mg 12/13/17 20:42 12/13/17 20:48 Xanax PO 12/13/17 20:43 0.5 mg ONETIME ONE Administration Hydromorphone HCl 1 mg 12/13/17 14:58 12/13/17 15:04 Dilaudid IVPUSH 12/13/17 14:59 1 mg ONETIME ONE Administration Hydromorphone HCl 1 mg 12/13/17 16:36 12/13/17 16:41 Dilaudid IVPUSH 12/13/17 16:37 1 mg ONETIME ONE Administration Hydromorphone HCl 1 mg 12/13/17 18:19 12/13/17 18:25 Dilaudid IVPUSH 12/13/17 18:20 1 mg ONETIME ONE Administration Hydromorphone HCl 1 mg 12/13/17 22:12 12/13/17 22:27 Dilaudid IVPUSH 12/13/17 22:13 1 mg ONETIME ONE Administration Sodium Chloride 1,000 mls @ 999 mls/hr 12/13/17 14:42 12/13/17 14:48 Normal Saline IV 12/13/17 15:42 999 mls/hr .BOLUS ONE Administration Sodium Chloride 1,000 mls @ 100 mls/hr 12/13/17 16:00 12/13/17 22:41 Normal Saline IV 0 mls/hr ASDIRECTED HERRERA Infusion Iopamidol 75 ml 12/13/17 15:23 12/13/17 15:45 Isovue-300 (61%) IVPUSH 12/13/17 15:24 75 ml ONETIME ONE Administration Ondansetron HCl 4 mg 12/13/17 22:19 12/13/17 22:24 Zofran IV 12/13/17 22:20 4 mg ONETIME ONE Administration Departure - Departure Disposition: DC/[facility]fer to [facility] 02 Clinical Impression: Constipation Ulcerative colitis Qualifiers: Ulcerative colitis location: unspecified ulcerative colitis location Digestive disease complication type: unspecified complication Qualified Code(s): K51.919 - Ulcerative colitis, unspecified with unspecified complications - Discharge Information Referrals: PCP,Not In Area [Primary Care Provider] - Forms: ED Department Discharge <Larisa Good - Last Filed: 12/15/17 00:13> Course - Re-Assessments/Exams Free Text/Narrative Re-Assessment/Exam: No results from small volume enemas. Continued abdominal cramping. 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 TC Dr. Amber Aguirre accepting of patient for further evaluation and management. Tx via [facility]. Departure - Departure Time of Disposition: 23:50 Condition: Undetermined
[2017-12-13] MEDS ORDERED: Sodium Chloride 0.9% 1,000 ML IV ONE (14:42)
[2017-12-13] MEDS ORDERED: HYDROmorphone 1 MG/ML Syringe IVPUSH ONE ×4 (14:58→22:12)
[2017-12-13 15:15] LABS: ANION GAP 12.5; CHLORIDE,CL 100 mmol/L (101-111); SODIUM,NA 134 mmol/L (135-145)
[2017-12-13] MEDS ORDERED: Iopamidol 612 MG/ML 75 ML Bottle IVPUSH ONE (15:23)
[2017-12-13] MEDS ORDERED: Sodium Chloride 0.9% 1,000 ML IV SCH (16:00)
--- NOTE | 2017-12-13 16:21 | CT ---
Clinical history: 42 year old 174 pound female with significant past medical history ulcerative colit is, Hodgkins lymphoma, "renal cancer", kidney stones, heart disease and now abdominal pain/bloating ( no bowel movement for 2 weeks). Patient denies oral ingestion of Pepto-Bismol or barium contrast agen ts. Scan technique: Volume acquisition of data from the abdomen and pelvis obtained without oral after in travenous ministration 75 cc nonionic contrast (2 cc/s via injector) while patient was lying supine o n the Siemens multi slice scanner [place], [place]. All data archived in the PACS system for storage, reformatting axial/sagittal/coronal planes and study. Interpretation: 1. Cardiac pacer leads. Surgical clips gallbladder fossa. Normal caliber aortoiliac vessels. Lumbar s pine unremarkable. 2. *Large volume of stool filling the entire colon with positive contrast concentrated in the descend ing left and rectosigmoid colon. 3. No pelvic or abdominal mass lesion, inflammatory "dirty" peritoneal fat, retroperitoneal lymphaden opathy, signs of mechanical large/small bowel obstruction, ascites or free intraperitoneal air. 4. Liver, stomach, spleen, atrophic pancreas, adrenal glands and kidneys unremarkable. No renal corti darvin mass lesion, nephrolithiasis (stones) or signs of obstructive uropathy. Normal uterus right of mi dline. Symmetric normal urinary bladder. 5. No ventral wall or inguinal hernias. 6. *Patchy atelectasis or developing infiltrate right lower lobe. Clinical? CONCLUSION: Severe obstipation and rectal impaction. No signs of mechanical small bowel obstruction. No renal mass lesion or intraperitoneal abnormality. Asymmetric patchy density right lung base.
[2017-12-13] MEDS ORDERED: ALPRAZolam 0.5 MG Tab PO ONE (20:42)
[2017-12-13] MEDS ORDERED: Ondansetron 4 MG/2 ML SDV IV ONE (22:19)
[2017-12-13 22:45] VITALS: BP 107/58
== END 2017-12-13 22:35 ==
LOC: DL.ED 13:54
DX: K51.919 Ulcerative colitis, unspecified with unspecified complications (principal); K59.00 Constipation, unspecified; E03.9 Hypothyroidism, unspecified; Z88.1 Allergy status to other antibiotic agents; Z88.5 Allergy status to narcotic agent; Z91.030 Bee allergy status; Z79.899 Other long term (current) drug therapy
CPT/HCPCS: 36415; 74177; 80053; 82150; 83605; 83690; 84484; 85025; 86140; 87040; 93005; 96365; 96366; 96375; 96376; 99285; A9270; J1170; J2405; J7030; Q9967; 93010

== ENCOUNTER 2019-04-15 10:32 | Emergency (ER) | payer BC, MEDICARE ==
[2019-04-15 11:01] VITALS: BP 112/71; PULSE 129
[2019-04-15] MEDS ORDERED: Sodium Chloride 0.9% 10 ML Syringe FLUSH PRN (11:07)
[2019-04-15] MEDS ORDERED: Sodium Chloride 0.9% 1,000 ML IV ONE (12:32)
[2019-04-15] MEDS ORDERED: HYDROmorphone 1 MG/ML Syringe IVPUSH ONE (12:32)
[2019-04-15 12:35] LABS: ANION GAP 14.7; CHLORIDE,CL 100 mmol/L (101-111); SODIUM,NA 137 mmol/L (135-145)
--- NOTE | 2019-04-15 13:59 | CT ---
EXAMINATION: Abdomen Pelvis wo Cont SEX: Female AGE: 44 years CLINICAL HISTORY: 44-year-old 155 pound female with complex medical history (lupus erythematosus, Hodgkin's disease, ulcerative colitis) dehydration, ABDOMINAL PAIN and now WBC 13,500 (history "kidney stones" and cholecystectomy). Scan technique: Volume acquisition of data emergency unenhanced CT scan abdomen and pelvis obtained (without oral or IV contrast) while patient was lying supine on the Siemens multislice scanner [place], [place]. All data archived in the PACS system for storage, reformatting axial/sagittal/coronal planes and study. Interpretation: Abnormal. 1. Positive contrast (?) and stool identified throughout the course of normal caliber colon. No sign of pelvic or abdominal mass lesion, mesenteric or retroperitoneal lymphadenopathy, mechanical small bowel obstruction or free intraperitoneal air. Note: There is free fluid (ASCITES) in the dependent right paracolic "gutter" and pelvis. Normal midline uterus. Multiple small physiologic follicular type cysts identified in the larger right ovary. Recent cyst rupture? 2. Surgical clips gallbladder fossa RUQ. Unenhanced stomach, spleen, pancreas, and adrenal glands unremarkable. Focal irregular low-attenuation LESION, anteriorly upper pole, right lobe of the liver (cyst? Abscess?) Coronal #13 unenhanced liver. Note: This intrahepatic lesion was not present on previous, comparison, exam 12 March 2018. Interval biopsy? LFTs? 3. Cardiac pacemaker. Normal cardiac silhouette. Lung bases clear. 4. Symmetric normal reniform size, axis and configuration. No cystic/solid renal cortical mass lesion, nephrolithiasis or signs of obstructive uropathy (pyelocaliectasis) on these unenhanced images of the kidneys. Phleboliths in the pelvis. Normal bladder. 5. Normal caliber abdominal aorta. No aneurysm or dissection. Marginal spondylosis but spine otherwise unremarkable. Conclusion: Cardiac pacemaker. New intrahepatic lesion right lobe of the liver (since comparison exam February 2018). Small amount of ascitic fluid pelvis. Positive contrast normal caliber colon.
[2019-04-15] MEDS ORDERED: HYDROmorphone 1 MG/ML Syringe IM ONE (14:31)
--- NOTE | 2019-04-15 14:36 | EDM.PDOC ---
Scribed by Pamela Cramer 04/15/19 [id number] for Carey Charles NP ED HPI GENERAL MEDICAL PROBLEM - General Chief Complaint: Genitourinary Problem Stated Complaint: GENERAL Time Seen by Provider: 04/15/19 11:00 Source of Information: Reports: Patient, RN, RN Notes Reviewed History Limitations: Reports: No Limitations - History of Present Illness INITIAL COMMENTS - FREE TEXT/NARRATIVE: Patient presents to ER with complaint of flare up of ulcerative colitis and recent kidney infection. States she has a bacteria that is only susceptible to Gentamicin. She was seen by Loren Paredes in clinic on 03/17/19. She was prescribed 7 days of Gentamicin. Patient states usually takes 14-21 days. Sepsis last year 3-4 times. Colitis flare up began a few days ago. She has had fever, chills, nausea, vomiting, diarrhea, burning, frequency, and urgency with urination. No chest pains or shortness of breath. Onset: Gradual Duration: Getting Worse Location: Reports: Abdomen, Back Quality: Reports: Ache Severity: Severe Improves with: Reports: None Worsens with: Reports: None Associated Symptoms: Reports: No Other Symptoms Right Flank Pain Score (Numeric/FACES): 6 - Related Data Allergies Allergy/AdvReac Type Severity Reaction Status Date / Time ciprofloxacin [From Cipro] Allergy Severe Anaphylactic Verified 03/21/19 11:20 Shock codeine Allergy Mild Rash Verified 03/21/19 11:20 egg Allergy Hives Verified 03/21/19 11:20 venom-honey bee Allergy Anaphylactic Verified 03/21/19 11:20 [bee venom (honey bee)] Shock Home Meds: Home Meds Metoprolol Succinate [Toprol XL 100mg] 50 mg PO DAILY PRN 02/25/13 [History] Ondansetron [Zofran] 8 mg PO Q4H PRN 02/25/13 [History] fentaNYL [Duragesic] 75 mcg TD Q48H 02/25/13 [History] Cholecalciferol (Vitamin D3) [Vitamin D3] 100,000 unit PO MOWEFR 02/17/14 [ History] Potassium Chloride 20 meq PO TID 02/17/14 [History] Methotrexate Sodium [Methotrexate] 7.5 mg PO .Wednesdays07/31/14 [History] Promethazine HCl 25 mg PO TID PRN 07/31/14 [History] Dicyclomine [Bentyl] 20 mg PO QID PRN 10/21/15 [History] Gabapentin [Neurontin] 600 mg PO BID 10/21/15 [History] Nitroglycerin [Nitrostat] 0.4 mg SL Q5M PRN 10/21/15 [History] oxyCODONE HCl [Oxycodone HCl] 10 mg PO Q4HR PRN 10/21/15 [History] traZODone 200 mg PO BEDTIME 10/21/15 [History] Ascorbic Acid [Vitamin C] 1,000 mg PO DAILY 03/12/18 [History] Melatonin/Pyridoxine HCl (B6) [Melatonin Tr 10 mg Tablet] 50 mg PO BEDTIME 03/12 [History] Acetaminophen [Tylenol] 650 mg PO Q4H PRN tablet 03/19/18 [Rx] Budesonide [Entocort EC] 9 mg PO DAILY 03/21/19 [History] Cyclobenzaprine [Flexeril] 10 mg PO Q8HR PRN 03/21/19 [History] Furosemide [Lasix] 20 mg PO DAILY PRN 03/21/19 [History] Ibuprofen [Motrin] 600 mg PO Q4H 03/21/19 [History] Modafinil 200 mg PO ASDIRECTED PRN 03/21/19 [History] Multivitamin with Minerals [Multivitamins with Minerals] 1 tab PO DAILY [History] Sodium Bicarbonate 650 mg PO DAILY 03/21/19 [History] predniSONE [Prednisone] 20 mg PO DAILY 03/21/19 [History] Past Medical History HEENT History: Reports: Other (See Below) 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 Cardiovascular History: Reports: Heart Failure, Pacemaker, Other (See Below) Other Cardiovascular History: Rodriguez parkinsons Respiratory History: Reports: Cystic Fibrosis Gastrointestinal History: Reports: Colon Polyp, GERD, Other (See Below) Other Gastrointestinal History: ulcerative colitis Genitourinary History: Reports: Acute Renal Failure, Renal Calculus Other Genitourinary History: Has had "problems" with the right kidney [employer]IL[employer] BURNER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 Checks blood sugars due to Prednisone. Hematologic History: Reports: None Immunologic History: Reports: Immunosuppression, SLE Oncologic (Cancer) History: Reports: Hodgkin's Lymphoma, Renal Dermatologic History: Reports: None, Other (See Below) Other Dermatologic History: undiagnosed rash - Infectious Disease History Infectious Disease History: Reports: Chicken Pox, Influenza - Past Surgical History Cardiovascular Surgical History: Reports: Cardiac Ablation, Pacer GI Surgical History: Reports: Cholecystectomy, Colon, Colonoscopy, EGD Female Surgical History: Reports: Other (See Below) Other Female Surgeries/Procedures: kidney repair Endocrine Surgical History: Reports: None Neurological Surgical History: Reports: None Oncologic Surgical History: Reports: None Dermatological Surgical History: Reports: None Social & Family History - Family History Family Medical History: Noncontributory Cardiac: Reports: Arrhythmia, SC, Pacemaker Respiratory: Reports: COPD GI: Reports: Colon Polyps, Diverticulosis : Reports: None OBGYN: Reports: None Musculoskeletal: Reports: Arthritis Neurological: Reports: Alzheimers Disease, Other (See Below) Other Neurological Family History: females on dad's side [email or web address]. Started in their 40-50 Psychiatric: Reports: Anxiety Endocrine/Metabolic: Reports: Diabetes, type II Hematologic: Reports: None Immunologic: Reports: None Oncologic: Reports: Brain, Lung - Caffeine Use Caffeine Use: Reports: None - Living Situation & Occupation Living situation: Reports: with Family ED ROS GENERAL - Review of Systems Review Of Systems: Comprehensive ROS is negative, except as noted in HPI. ED EXAM, RENAL/ - Physical Exam Exam: See Below Exam Limited By: No Limitations General Appearance: Other (pale) Eye Exam: Bilateral Eye: EOMI, Normal Inspection, PERRL Ears: Normal External Exam, Normal Canal, Hearing Grossly Normal, Normal TMs Nose: Normal Inspection, Normal Mucosa, No Blood Throat/Mouth: Normal Inspection, Normal Lips, Normal Teeth, Normal Gums, Normal Oropharynx, Normal Voice, No Airway Compromise Head: Atraumatic, Normocephalic Neck: Normal Inspection, Supple, Non-Tender, Full Range of Motion Respiratory/Chest: Lungs Clear (and diminished) Cardiovascular: Normal Peripheral Pulses, Regular Rate, Rhythm, No Edema, No Gallop, No JVD, No Murmur, No Rub GI/Abdominal: Tender (Female) Exam: Deferred Rectal (Female) Exam: Deferred Back Exam: CVA Tenderness (R) Extremities: Normal Inspection, Normal Range of Motion, Non-Tender, Normal Capillary Refill, No Pedal Edema Neurological: Alert, Oriented, CN II-XII Intact, Normal Cognition, Normal Gait, Normal Reflexes, No Motor/Sensory Deficits Psychiatric: Normal Affect, Normal Mood Skin Exam: Other (pale) Lymphatic: No Adenopathy Course - Vital Signs Last Recorded V/S: Last Vital Signs Temp 98.0 F 04/15/19 10:37 Pulse 129 H 04/15/19 10:37 Resp 18 04/15/19 10:37 BP 112/71 04/15/19 10:37 Pulse Ox 99 04/15/19 10:37 - Orders/Labs/Meds Orders: Active Orders 24 hr Category Date Time Status Peripheral IV Care [RC] . DIRECTED Care 04/15/19 11:08 Active CULTURE BLOOD [BC] Stat Lab 04/15/19 11:08 Ordered CULTURE BLOOD [BC] Stat Lab 04/15/19 11:57 Results CULTURE URINE [RM] Urgent Lab 04/15/19 11:28 Received Sodium Chloride 0.9% [Saline Flush] Med 04/15/19 11:07 Active 10 ml FLUSH ASDIRECTED PRN Blood Culture x2 Reflex Set [OM.PC] Stat Oth 04/15/19 11:07 Ordered Peripheral IV Insertion Adult [OM.PC] Stat Oth 04/15/19 11:07 Ordered Medication Orders Sodium Chloride (Saline Flush) 10 ml FLUSH ASDIRECTED PRN PRN Reason: Keep Vein Open Labs: Laboratory Tests 04/15/19 04/15/19 04/15/19 Range/Units 11:28 11:28 11:57 WBC 13.0 H (5.0-10.0) 10^3/uL RBC 4.69 (4.2-5.4) 10^6/uL Hgb 12.6 D (12.0-16.0) g/dL Hct 38.3 (37.0-47.0) % MCV 81.7 (80-100) fL MCH 26.9 L (27.0-34.0) pg MCHC 32.9 L (33.0-35.0) g/dL Plt Count 347 (150-450) 10^3/uL Neut % (Auto) 84.5 H (42.2-75.2) % Lymph % (Auto) 9.9 L (20.5-50.1) % [place] % (Auto) 5.3 (2-8) % Eos % (Auto) 0.2 L (1.0-3.0) % Baso % (Auto) 0.1 (0.0-1.0) % Sodium (135-145) mmol/L Potassium (3.6-5.0) mmol/L Chloride (101-111) mmol/L Carbon Dioxide (21.0-31.0) mmol/L Anion Gap BUN (7-18) mg/dL Creatinine (0.6-1.3) mg/dL Est Cr Clr Drug Dosing mL/min Estimated GFR (MDRD) BUN/Creatinine Ratio Glucose (74-105) mg/dL Lactic Acid (0.5-2.0) mmol/L Calcium (8.4-10.2) mg/dl Total Bilirubin (0.2-1.0) mg/dL AST (10-42) IU/L ALT (10-60) IU/L Alkaline Phosphatase (42-121) IU/L Total Protein (6.7-8.2) g/dl Albumin (3.2-5.5) g/dl Globulin Albumin/Globulin Ratio Urine Color Dark yellow (YELLOW) Urine Appearance Clear (CLEAR) Urine pH 6.0 (5.0-9.0) Ur Specific [place] >= 1.030 (1.005-1.030) Urine Protein 100 H (NEGATIVE) Urine Glucose (UA) Negative (NEGATIVE) Urine Ketones Trace H (NEGATIVE) Urine Occult Blood Negative (NEGATIVE) Urine Nitrite Negative (NEGATIVE) Urine Bilirubin Moderate H (NEGATIVE) Urine Urobilinogen 1.0 (0.2-1.0) mg/dL Ur Leukocyte Esterase Negative (NEGATIVE) Urine RBC 0-5 /HPF Urine WBC 5-10 H (0-5/HPF) /HPF Ur Epithelial Cells Many H (NOT SEEN) /HPF Calcium Oxalate Crystal Moderate H (NOT SEEN) /HPF Urine Bacteria Moderate H (0-FEW/HPF) /HPF Urine Mucus Rare (NOT SEEN) /LPF Urine HCG, Qual Negative 04/15/19 04/15/19 Range/Units 11:57 11:57 WBC (5.0-10.0) 10^3/uL RBC (4.2-5.4) 10^6/uL Hgb (12.0-16.0) g/dL Hct (37.0-47.0) % MCV (80-100) fL MCH (27.0-34.0) pg MCHC (33.0-35.0) g/dL Plt Count (150-450) 10^3/uL Neut % (Auto) (42.2-75.2) % Lymph % (Auto) (20.5-50.1) % [place] % (Auto) (2-8) % Eos % (Auto) (1.0-3.0) % Baso % (Auto) (0.0-1.0) % Sodium 137 (135-145) mmol/L Potassium 3.7 (3.6-5.0) mmol/L Chloride 100 L (101-111) mmol/L Carbon Dioxide 26.0 (21.0-31.0) mmol/L Anion Gap 14.7 BUN 10 (7-18) mg/dL Creatinine 0.9 (0.6-1.3) mg/dL Est Cr Clr Drug Dosing 73.27 mL/min Estimated GFR (MDRD) > 60 BUN/Creatinine Ratio 11.11 Glucose 94 (74-105) mg/dL Lactic Acid 1.0 (0.5-2.0) mmol/L Calcium 8.9 (8.4-10.2) mg/dl Total Bilirubin 0.2 (0.2-1.0) mg/dL AST 45 H (10-42) IU/L ALT 145 H (10-60) IU/L Alkaline Phosphatase 195 H (42-121) IU/L Total Protein 7.1 (6.7-8.2) g/dl Albumin 3.6 (3.2-5.5) g/dl Globulin 3.5 Albumin/Globulin Ratio 1.03 Urine Color (YELLOW) Urine Appearance (CLEAR) Urine pH (5.0-9.0) Ur Specific [place] (1.005-1.030) Urine Protein (NEGATIVE) Urine Glucose (UA) (NEGATIVE) Urine Ketones (NEGATIVE) Urine Occult Blood (NEGATIVE) Urine Nitrite (NEGATIVE) Urine Bilirubin (NEGATIVE) Urine Urobilinogen (0.2-1.0) mg/dL Ur Leukocyte Esterase (NEGATIVE) Urine RBC /HPF Urine WBC (0-5/HPF) /HPF Ur Epithelial Cells (NOT SEEN) /HPF Calcium Oxalate Crystal (NOT SEEN) /HPF Urine Bacteria (0-FEW/HPF) /HPF Urine Mucus (NOT SEEN) /LPF Urine HCG, Qual Meds: Medications Generic Name Dose Route Start Last Admin Trade Name Freq PRN Reason Stop Dose Admin Sodium Chloride 10 ml 04/15/19 11:07 Saline Flush FLUSH ASDIRECTED PRN Keep Vein Open Discontinued Medications Generic Name Dose Route Start Last Admin Trade Name Freq PRN Reason Stop Dose Admin Hydromorphone HCl 1 mg 04/15/19 12:32 04/15/19 14:07 Dilaudid IVPUSH 04/15/19 12:33 Not Given ONETIME ONE Hydromorphone HCl 1 mg 04/15/19 14:31 Dilaudid IM 04/15/19 14:32 ONETIME ONE Sodium Chloride 1,000 mls @ 999 mls/hr 04/15/19 12:32 04/15/19 14:07 Normal Saline IV 04/15/19 13:32 Not Given .BOLUS ONE - Radiology Interpretation Free Text/Narrative:: Abdomen and pelvis CT: Cardiac pacemaker. New intrahepatic lesion right lobe of the liver (since comparison exam February 2018). Small amount of ascitic fluid pelvis. Positive contrast normal caliber colon. See rad report. - Re-Assessments/Exams Free Text/Narrative Re-Assessment/Exam: 04/15/19 14:33 Discussed patient case with Dr. Perdomo who agreed to accept the patient for transfer to [facility] Departure - Departure Time of Disposition: 14:34 Disposition: DC/Tfer to Acute Hospital 02 Condition: Fair Clinical Impression: Liver lesion, right lobe, Elevated liver enzymes, Right flank pain, Lupus Ulcerative colitis Qualifiers: Ulcerative colitis location: unspecified ulcerative colitis location Digestive disease complication type: unspecified complication Qualified Code(s): K51.919 - Ulcerative colitis, unspecified with unspecified complications - Discharge Information *PRESCRIPTION DRUG MONITORING PROGRAM REVIEWED*: No *COPY OF PRESCRIPTION DRUG MONITORING REPORT IN PATIENT VIDYA: No Forms: ED Department Discharge, Interfacility Transfer EMTALA Sepsis Event Note - Evaluation Sepsis Screening Result: No Definite Risk - Focused Exam Vital Signs: Vital Signs Temp Pulse Resp BP Pulse Ox 04/15/19 10:37 98.0 F 129 H 18 112/71 99 Date Exam was Performed: 04/15/19 Time Exam was Performed: 14:33 - My Orders Last 24 Hours: My Active Orders 04/15/19 11:07 Sodium Chloride 0.9% [Saline Flush] 10 ml FLUSH ASDIRECTED PRN Blood Culture x2 Reflex Set [OM.PC] Stat Peripheral IV Insertion Adult [OM.PC] Stat 04/15/19 11:08 Peripheral IV Care [RC] . DIRECTED CULTURE BLOOD [BC] Stat 04/15/19 11:28 CULTURE URINE [RM] Urgent 04/15/19 11:57 CULTURE BLOOD [BC] Stat - Assessment/Plan Last 24 Hours: My Active Orders 04/15/19 11:07 Sodium Chloride 0.9% [Saline Flush] 10 ml FLUSH ASDIRECTED PRN Blood Culture x2 Reflex Set [OM.PC] Stat Peripheral IV Insertion Adult [OM.PC] Stat 04/15/19 11:08 Peripheral IV Care [RC] . DIRECTED CULTURE BLOOD [BC] Stat 04/15/19 11:28 CULTURE URINE [RM] Urgent 04/15/19 11:57 CULTURE BLOOD [BC] Stat I have read and agree with the documentation that has been completed regarding this visit. By signing this record, I attest that the documentation was completed in my physical presence and is an accurate record of the encounter.
== END 2019-04-15 15:13 ==
LOC: DL.ED 10:32
DX: K51.919 Ulcerative colitis, unspecified with unspecified complications (principal); K76.9 Liver disease, unspecified; M32.9 Systemic lupus erythematosus, unspecified; R94.5 Abnormal results of liver function studies; E03.9 Hypothyroidism, unspecified; F41.9 Anxiety disorder, unspecified; F32.9 Major depressive disorder, single episode, unspecified; K21.9 Gastro-esophageal reflux disease without esophagitis; Z79.899 Other long term (current) drug therapy; Z88.5 Allergy status to narcotic agent; Z91.012 Allergy to eggs; Z91.030 Bee allergy status; Z88.1 Allergy status to other antibiotic agents
CPT/HCPCS: 36415; 74176; 80053; 81001; 81025; 83605; 85025; 87040; 87086; 87088; 87186; 96372; 99285; J1170

== ENCOUNTER 2019-09-30 17:27 | Emergency (ER) | payer MEDICARE, BC ==
[2019-09-30 18:04] VITALS: BP 115/80; PULSE 100
[2019-09-30] MEDS ORDERED: Sodium Chloride 0.9% 10 ML Syringe FLUSH PRN (18:04)
[2019-09-30] MEDS ORDERED: methylPREDNISolone Sodium Succinate 125 MG/2 ML SDV IVPUSH ONE (18:04)
[2019-09-30] MEDS ORDERED: Ondansetron 4 MG/2 ML SDV IV ONE (18:04)
[2019-09-30] MEDS ORDERED: Sodium Chloride 0.9% 1,000 ML IV ONE (18:04)
--- NOTE | 2019-09-30 18:25 | EDM.PDOC ---
Scribed by Pamela Cramer 09/30/19 1828 for Osmin Marcum MD <Osmin Marcum - Last Filed: 09/30/19 18:50> ED HPI GENERAL MEDICAL PROBLEM - General Chief Complaint: Abdominal Pain Stated Complaint: PAIN Time Seen by Provider: 09/30/19 18:02 Source of Information: Reports: Patient, RN, RN Notes Reviewed History Limitations: Reports: No Limitations - History of Present Illness INITIAL COMMENTS - FREE TEXT/NARRATIVE: Patient presents to ED by POV with c/o severe generalized abdominal pain which is exactly the same as her past flare-ups of ulcerative colitis. She has generalized abdominal pain with N/V, blood and mucus in stools. She report feeling bloated, nauseated and having a hard time keeping anything down. She has been having problems for the past 1 and 1/2 weeks. Using her Bentyl, pain medications, and nausea medications without relief. Solu-Medrol usually helps her U.C. flare ups. She rates the pain 9/10. Nothing alleviates or aggravates the pain. Duration: Day(s): (-), Constant Location: Reports: Abdomen Quality: Reports: Ache, Same as Previous Episode Severity: Severe Improves with: Reports: None Worsens with: Reports: Eating Associated Symptoms: Reports: No Other Symptoms Abdomen Pain Score (Numeric/FACES): 7 - Related Data Allergies Allergy/AdvReac Type Severity Reaction Status Date / Time ciprofloxacin [From Cipro] Allergy Severe Anaphylactic Verified 03/21/19 11:20 Shock codeine Allergy Mild Rash Verified 03/21/19 11:20 egg Allergy Hives Verified 03/21/19 11:20 venom-honey bee Allergy Anaphylactic Verified 03/21/19 11:20 [bee venom (honey bee)] Shock Home Meds: Home Meds Metoprolol Succinate [Toprol XL 100mg] 50 mg PO DAILY PRN 02/25/13 [History] Ondansetron [Zofran] 8 mg PO Q4H PRN 02/25/13 [History] fentaNYL [Duragesic] 75 mcg TD Q48H 02/25/13 [History] Cholecalciferol (Vitamin D3) [Vitamin D3] 100,000 unit PO MOWEFR 02/17/14 [History] Potassium Chloride 20 meq PO TID 02/17/14 [History] Promethazine HCl 25 mg PO TID PRN 07/31/14 [History] metHOTREXate sodium [Methotrexate] 7.5 mg PO .Wednesdays07/31/14 [History] Dicyclomine [Bentyl] 20 mg PO QID PRN 10/21/15 [History] Gabapentin [Neurontin] 600 mg PO BID 10/21/15 [History] Nitroglycerin [Nitrostat] 0.4 mg SL Q5M PRN 10/21/15 [History] oxyCODONE HCl [Oxycodone HCl] 10 mg PO Q4HR PRN 10/21/15 [History] traZODone 200 mg PO BEDTIME 10/21/15 [History] Ascorbic Acid [Vitamin C] 1,000 mg PO DAILY 03/12/18 [History] Acetaminophen [Tylenol] 650 mg PO Q4H PRN tablet 03/19/18 [Rx] Budesonide [Entocort EC] 9 mg PO DAILY 03/21/19 [History] Cyclobenzaprine [Flexeril] 10 mg PO Q8HR PRN 03/21/19 [History] Furosemide [Lasix] 20 mg PO DAILY PRN 03/21/19 [History] Ibuprofen [Motrin] 600 mg PO Q4H 03/21/19 [History] Multivitamin with Minerals [Multivitamins with Minerals] 1 tab PO DAILY 03/21/19 [History] Sodium Bicarbonate 650 mg PO DAILY 03/21/19 [History] modafiniL [Modafinil] 200 mg PO ASDIRECTED PRN 03/21/19 [History] predniSONE [Prednisone] 20 mg PO DAILY 03/21/19 [History] Calcium Carbonate [Calcium] 2 tab PO BID 09/30/19 [History] Past Medical History HEENT History: Reports: Other (See Below) 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 Cardiovascular History: Reports: Heart Failure, Pacemaker, Other (See Below) Other Cardiovascular History: Rodriguez parkinsons Respiratory History: Reports: Cystic Fibrosis Gastrointestinal History: Reports: Colon Polyp, GERD, Other (See Below) Other Gastrointestinal History: ulcerative colitis Genitourinary History: Reports: Acute Renal Failure, Renal Calculus Other Genitourinary History: Has had "problems" with the right kidney [employer] 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 Checks blood sugars due to Prednisone. Hematologic History: Reports: None Immunologic History: Reports: Immunosuppression, SLE Oncologic (Cancer) History: Reports: Hodgkin's Lymphoma, Renal Dermatologic History: Reports: None, Other (See Below) Other Dermatologic History: undiagnosed rash - Infectious Disease History Infectious Disease History: Reports: Chicken Pox, Influenza - Past Surgical History Cardiovascular Surgical History: Reports: Cardiac Ablation, Pacer GI Surgical History: Reports: Cholecystectomy, Colon, Colonoscopy, EGD Female Surgical History: Reports: Other (See Below) Other Female Surgeries/Procedures: kidney repair Endocrine Surgical History: Reports: None Neurological Surgical History: Reports: None Oncologic Surgical History: Reports: None Dermatological Surgical History: Reports: None Social & Family History - Family History Family Medical History: Noncontributory Cardiac: Reports: Arrhythmia, [place], Pacemaker Respiratory: Reports: COPD GI: Reports: Colon Polyps, Diverticulosis : Reports: None OBGYN: Reports: None Musculoskeletal: Reports: Arthritis Neurological: Reports: Alzheimers Disease, Other (See Below) Other Neurological Family History: females on dad's side Daniele alzheimers. Started in their 40-50 Psychiatric: Reports: Anxiety Endocrine/Metabolic: Reports: Diabetes, type II Hematologic: Reports: None Immunologic: Reports: None Oncologic: Reports: Brain, Lung - Caffeine Use Caffeine Use: Reports: None - Living Situation & Occupation Living situation: Reports: with Family ED ROS GENERAL - Review of Systems Review Of Systems: Comprehensive ROS is negative, except as noted in HPI. ED EXAM, GI/ABD - Physical Exam Exam: See Below Exam Limited By: No Limitations General Appearance: Alert, No Apparent Distress, Mild Distress (Due to pain), Other (Uncomfortable, but non-toxic appearing). No: Active Emesis Eyes: Bilateral: Normal Appearance (No scleral icterus) Nose: Normal Inspection Throat/Mouth: Normal Lips, Normal Oropharynx, Normal Voice, No Airway Compromise, Other (Dry oral membranes) Head: Atraumatic, Normocephalic Neck: Normal Inspection Respiratory/Chest: No Respiratory Distress, Lungs Clear, Normal Breath Sounds, No Accessory Muscle Use, Chest Non-Tender Cardiovascular: Regular Rate, Rhythm, No Edema, Tachycardia GI/Abdominal Exam: Soft, No Distention, No Abnormal Bruit, Tender (Generalized abdominal tenderness), Abnormal Bowel Sounds (Hyperactive). No: Guarding, Rigid, Rebound (Female) Exam: Deferred Rectal (Female) Exam: Deferred Extremities: Normal Inspection Neurological: Alert, Oriented, CN II-XII Intact, Normal Cognition, No Motor/Sensory Deficits Psychiatric: Depressed Mood, Flat Affect, Tearful Skin Exam: Warm, Dry, Intact, Normal Color, No Rash. No: Ecchymosis, Jaundice, Petechiae, Rash Course - Re-Assessments/Exams Free Text/Narrative Re-Assessment/Exam: 09/30/19 19:00 Care of pt transferred to Larisa CHEN at shift change. Departure - Departure Disposition: Home, Self-Care 01 Clinical Impression: Nausea and vomiting, Lupus Ulcerative colitis Qualifiers: Ulcerative colitis location: unspecified ulcerative colitis location Digestive disease complication type: unspecified complication Qualified Code(s): K51.919 - Ulcerative colitis, unspecified with unspecified complications - Discharge Information Instructions: Nausea and Vomiting, Adult Forms: ED Department Discharge Additional Instructions: Prednisone taper resume home medications follow up primary care this week urgent follow up fever, unable to control nausea or pain or develop fever encourage fluids small amounts more often <Larisa Good - Last Filed: 09/30/19 19:53> Course - Vital Signs Last Recorded V/S: Last Vital Signs Temp 98.2 F 09/30/19 17:46 Pulse 100 09/30/19 17:46 Resp 16 09/30/19 17:46 BP 115/80 09/30/19 17:46 Pulse Ox 100 09/30/19 17:46 - Orders/Labs/Meds Orders: Active Orders 24 hr Category Date Time Status Peripheral IV Care [RC] . DIRECTED Care 09/30/19 18:04 Active Sodium Chloride 0.9% [Saline Flush] Med 09/30/19 18:04 Active 10 ml FLUSH ASDIRECTED PRN Peripheral IV Insertion Adult [OM.PC] Stat Oth 09/30/19 18:03 Ordered Medication Orders Sodium Chloride (Saline Flush) 10 ml FLUSH ASDIRECTED PRN PRN Reason: Keep Vein Open Last Admin: 09/30/19 18:15 Dose: 10 ml Documented by: ANTIONE Labs: Laboratory Tests 09/30/19 09/30/19 09/30/19 Range/Units 18:20 18:20 18:20 WBC 7.6 (5.0-10.0) 10^3/uL RBC 4.39 (4.2-5.4) 10^6/uL Hgb 11.4 L (12.0-16.0) g/dL Hct 35.9 L (37.0-47.0) % MCV 81.8 (80-100) fL MCH 26.0 L (27.0-34.0) pg MCHC 31.8 L (33.0-35.0) g/dL Plt Count 336 (150-450) 10^3/uL Neut % (Auto) 71.3 (42.2-75.2) % Lymph % (Auto) 21.7 (20.5-50.1) % [place] % (Auto) 4.5 (2-8) % Eos % (Auto) 2.4 (1.0-3.0) % Baso % (Auto) 0.1 (0.0-1.0) % Sodium 140 (136-145) mmol/L Potassium 3.7 (3.5-5.1) mmol/L Chloride 105 (98-107) mmol/L Carbon Dioxide 30 (21-32) mmol/L Anion Gap 8.7 (7-13) mEq/L BUN 7 (7-18) mg/dL Creatinine 1.06 H (0.55-1.02) mg/dL Est Cr Clr Drug Dosing 59.70 mL/min Estimated GFR (MDRD) 57 BUN/Creatinine Ratio 6.6 (No establ ref range) Glucose 114 H (74-99) mg/dL Lactic Acid 1.2 (0.4-2.0) mmol/L Calcium 9.2 (8.5-10.1) mg/dL Total Bilirubin 0.3 (0.2-1.0) mg/dL AST 43 H (15-37) U/L ALT 74 H (14-59) U/L Alkaline Phosphatase 181 H (46-116) U/L C-Reactive Protein 0.2 (0.0-0.9) mg/dL Total Protein 6.8 (6.4-8.2) g/dL Albumin 3.6 (3.4-5.0) g/dL Globulin 3.2 Albumin/Globulin Ratio 1.1 Amylase 53 (25-115) U/L Lipase 146 (73-393) U/L Meds: Medications Generic Name Dose Route Start Last Admin Trade Name Eliceoq PRN Reason Stop Dose Admin Sodium Chloride 10 ml 09/30/19 18:04 09/30/19 18:15 Saline Flush FLUSH 10 ml ASDIRECTED PRN Administration Keep Vein Open Discontinued Medications Generic Name Dose Route Start Last Admin Trade Name Mickey PRN Reason Stop Dose Admin Hydromorphone HCl 1 mg 09/30/19 19:06 09/30/19 19:12 Dilaudid IVPUSH 09/30/19 19:07 1 mg ONETIME ONE Administration Sodium Chloride 1,000 mls @ 999 mls/hr 09/30/19 18:04 09/30/19 18:28 Normal Saline IV 09/30/19 19:04 999 mls/hr .BOLUS ONE Administration Methylprednisolone Sodium Succinate 125 mg 09/30/19 18:04 09/30/19 18:33 Solu-Medrol IVPUSH 09/30/19 18:05 125 mg ONETIME ONE Administration Ondansetron HCl 4 mg 09/30/19 18:04 09/30/19 18:29 Zofran IV 09/30/19 18:05 4 mg ONETIME ONE Administration Ondansetron HCl 4 mg 09/30/19 19:06 Zofran IVPUSH 09/30/19 19:07 ONETIME ONE Departure - Departure Time of Disposition: 19:50 Condition: Fair - Discharge Information *PRESCRIPTION DRUG MONITORING PROGRAM REVIEWED*: No *COPY OF PRESCRIPTION DRUG MONITORING REPORT IN PATIENT VIDYA: No Sepsis Event Note (ED) - Focused Exam Vital Signs: Vital Signs Temp Pulse Resp BP Pulse Ox 09/30/19 17:46 98.2 F 100 16 115/80 100 I have read and agree with the documentation that has been completed regarding this visit. By signing this record, I attest that the documentation was completed in my physical presence and is an accurate record of the encounter.
[2019-09-30 18:47] LABS: ANION GAP 8.7 mEq/L (7-13)
[2019-09-30] MEDS ORDERED: HYDROmorphone 1 MG/ML Syringe IVPUSH ONE (19:06)
[2019-09-30] MEDS ORDERED: Ondansetron 4 MG/2 ML SDV IVPUSH ONE (19:06)
== END 2019-09-30 20:04 | disposition home or self-care (01) ==
LOC: DL.ED 17:27
DX: K51.919 Ulcerative colitis, unspecified with unspecified complications (principal); R11.2 Nausea with vomiting, unspecified; M32.9 Systemic lupus erythematosus, unspecified; I50.9 Heart failure, unspecified; F41.9 Anxiety disorder, unspecified; F32.9 Major depressive disorder, single episode, unspecified; Z90.49 Acquired absence of other specified parts of digestive tract; Z88.1 Allergy status to other antibiotic agents; Z88.5 Allergy status to narcotic agent; Z91.030 Bee allergy status; Z91.012 Allergy to eggs; Z79.899 Other long term (current) drug therapy
CPT/HCPCS: 36415; 80053; 82150; 83605; 83690; 85025; 86140; 96361; 96374; 96375; 99284; J1170; J2405; J2930; J7030

== ENCOUNTER 2020-03-20 18:26 | Emergency (ER) | payer MEDICARE, BC ==
[2020-03-20] MEDS ORDERED: Sulfamethoxazole/Trimethoprim 800-160 MG Tab PO ONE (18:27)
[2020-03-20 18:36] VITALS: BP 125/79; PULSE 103
--- NOTE | 2020-03-20 19:07 | EDM.PDOC ---
ED HPI GENERAL MEDICAL PROBLEM - General Chief Complaint: Genitourinary Problem Stated Complaint: KIDNEY AND BLADDER INFECTION Time Seen by Provider: 03/20/20 19:00 Source of Information: Reports: Patient History Limitations: Reports: No Limitations - History of Present Illness INITIAL COMMENTS - FREE TEXT/NARRATIVE: gives recurrent h/o UTI Sx. states already has pyridium and not helping. usually needs IV gent daily but unable get into clinic to have it set up. did call them Tuesday but told was full and come to ER. last episode was Tx by Dr Loren Paredes who is no longer working there. Right Flank Pain Score (Numeric/FACES): 5 - Related Data Allergies Allergy/AdvReac Type Severity Reaction Status Date / Time ciprofloxacin [From Cipro] Allergy Severe Anaphylactic Verified 03/20/20 18:36 Shock codeine Allergy Mild Rash Verified 03/20/20 18:36 egg Allergy Hives Verified 03/20/20 18:36 venom-honey bee Allergy Anaphylactic Verified 03/20/20 18:36 [bee venom (honey bee)] Shock Home Meds: Home Meds Metoprolol Succinate [Toprol XL 100mg] 50 mg PO DAILY PRN 02/25/13 [History] Ondansetron [Zofran] 8 mg PO Q4H PRN 02/25/13 [History] fentaNYL [Duragesic] 75 mcg TD Q48H 02/25/13 [History] Cholecalciferol (Vitamin D3) [Vitamin D3] 100,000 unit PO MOWEFR 02/17/14 [History] Potassium Chloride 20 meq PO TID 02/17/14 [History] Promethazine HCl 25 mg PO TID PRN 07/31/14 [History] metHOTREXate sodium [Methotrexate] 7.5 mg PO .Wednesdays07/31/14 [History] Dicyclomine [Bentyl] 20 mg PO QID PRN 10/21/15 [History] Gabapentin [Neurontin] 600 mg PO BID 10/21/15 [History] Nitroglycerin [Nitrostat] 0.4 mg SL Q5M PRN 10/21/15 [History] oxyCODONE HCl [Oxycodone HCl] 10 mg PO Q4HR PRN 10/21/15 [History] traZODone 200 mg PO BEDTIME 10/21/15 [History] Ascorbic Acid [Vitamin C] 1,000 mg PO DAILY 03/12/18 [History] Acetaminophen [Tylenol] 650 mg PO Q4H PRN tablet 03/19/18 [Rx] Budesonide [Entocort EC] 9 mg PO DAILY 03/21/19 [History] Cyclobenzaprine [Flexeril] 10 mg PO Q8HR PRN 03/21/19 [History] Furosemide [Lasix] 20 mg PO DAILY PRN 03/21/19 [History] Ibuprofen [Motrin] 600 mg PO Q4H 03/21/19 [History] Multivitamin with Minerals [Multivitamins with Minerals] 1 tab PO DAILY 03/21/19 [History] Sodium Bicarbonate 650 mg PO DAILY 03/21/19 [History] modafiniL [Modafinil] 200 mg PO ASDIRECTED PRN 03/21/19 [History] predniSONE [Prednisone] 20 mg PO DAILY 03/21/19 [History] Calcium Carbonate [Calcium] 2 tab PO BID 09/30/19 [History] Past Medical History HEENT History: Reports: Other (See Below) 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 Cardiovascular History: Reports: Heart Failure, Pacemaker, Other (See Below) Other Cardiovascular History: Rodriguez parkinsons Respiratory History: Reports: Cystic Fibrosis Gastrointestinal History: Reports: Colon Polyp, GERD, Other (See Below) Other Gastrointestinal History: ulcerative colitis Genitourinary History: Reports: Acute Renal Failure, Renal Calculus Other Genitourinary History: Has had "problems" with the right kidney [employer]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 Checks blood sugars due to Prednisone. Hematologic History: Reports: None Immunologic History: Reports: Immunosuppression, SLE Oncologic (Cancer) History: Reports: Hodgkin's Lymphoma, Renal Dermatologic History: Reports: None, Other (See Below) Other Dermatologic History: undiagnosed rash - Infectious Disease History Infectious Disease History: Reports: Chicken Pox, Influenza - Past Surgical History HEENT Surgical History: Reports: Adenoidectomy Cardiovascular Surgical History: Reports: Cardiac Ablation, Pacer Other Cardiovascular Surgeries/Procedures: ablation for rodriguez parkinsons GI Surgical History: Reports: Cholecystectomy, Colon, Colonoscopy, EGD Other GI Surgeries/Procedures: Has had some of her intestine removed Female Surgical History: Reports: Other (See Below) Other Female Surgeries/Procedures: kidney repair Endocrine Surgical History: Reports: None Neurological Surgical History: Reports: None Musculoskeletal Surgical History: Reports: Other (See Below) Other Musculoskeletal Surgeries/Procedures:: cancer removed from foot and leg Oncologic Surgical History: Reports: None Other Oncologic Surgeries/Procedures: cancerous polyps removed from colon Dermatological Surgical History: Reports: None Social & Family History - Family History Family Medical History: No Pertinent Family History Cardiac: Reports: Arrhythmia, [place], Pacemaker Respiratory: Reports: COPD GI: Reports: Colon Polyps, Diverticulosis : Reports: None OBGYN: Reports: None Musculoskeletal: Reports: Arthritis Neurological: Reports: Alzheimers Disease, Other (See Below) Other Neurological Family History: females on dad's side Daniele alzheimernannette. Started in their 40-50 Psychiatric: Reports: Anxiety Endocrine/Metabolic: Reports: Diabetes, type II Hematologic: Reports: None Immunologic: Reports: None Oncologic: Reports: Brain, Lung - Tobacco Use Tobacco Use Status *Q: Never Tobacco User Second Hand Smoke Exposure: No - Caffeine Use Caffeine Use: Reports: None - Recreational Drug Use Recreational Drug Use: No - Living Situation & Occupation Living situation: Reports: with Family ED ROS GENERAL - Review of Systems Review Of Systems: Comprehensive ROS is negative, except as noted in HPI. ED EXAM, RENAL/ - Physical Exam Exam: See Below Exam Limited By: No Limitations General Appearance: Alert, WD/WN, Mild Distress, Other (discomfort). No: Active Emesis Ears: Hearing Grossly Normal Throat/Mouth: Normal Voice, No Airway Compromise Head: Atraumatic Neck: Non-Tender, Full Range of Motion Respiratory/Chest: No Respiratory Distress Cardiovascular: Regular Rate, Rhythm GI/Abdominal: Soft, Non-Tender (Female) Exam: Deferred Rectal (Female) Exam: Deferred Neurological: Alert, Oriented, Normal Cognition, Normal Gait, No Motor/Sensory Deficits Psychiatric: Normal Affect, Normal Mood Skin Exam: Warm, Dry, Normal Color Lymphatic: No Adenopathy Course - Vital Signs Last Recorded V/S: Last Vital Signs Temp 36.7 C 03/20/20 18:31 Pulse 103 H 03/20/20 18:31 Resp 18 03/20/20 18:31 BP 125/79 03/20/20 18:31 Pulse Ox 96 03/20/20 18:31 - Orders/Labs/Meds Orders: Active Orders 24 hr Category Date Time Status CULTURE URINE [RM] Routine Lab 03/20/20 18:50 Received Phenazopyridine [Urinary Pain Relief] Med 03/20/20 19:23 Once 95 mg PO ONETIME ONE Sulfamethoxazole/Trimethoprim [Septra DS] Med 03/20/20 19:23 Once 1 tab PO ONETIME ONE Labs: Laboratory Tests 03/20/20 Range/Units 18:50 Urine Color Mary (YELLOW) Urine Appearance Turbid (CLEAR) Urine pH 8.5 (5.0-9.0) Ur Specific Star <= 1.005 (1.005-1.030) Urine Protein >=300 H (NEGATIVE) Urine Glucose (UA) 500 H (NEGATIVE) Urine Ketones 40 H (NEGATIVE) Urine Occult Blood Small H (NEGATIVE) Urine Nitrite Positive H (NEGATIVE) Urine Bilirubin Large H (NEGATIVE) Urine Urobilinogen >=8.0 H (0.2-1.0) mg/dL Ur Leukocyte Esterase Large H (NEGATIVE) Urine RBC 0-5 /HPF Urine WBC 75-100 H (0-5/HPF) /HPF Ur Epithelial Cells Moderate H (NOT SEEN) /HPF Urine Bacteria Many H (0-FEW/HPF) /HPF - Re-Assessments/Exams Free Text/Narrative Re-Assessment/Exam: 03/20/20 19:23 results discussed with pt. Departure - Departure Time of Disposition: 19:24 Disposition: Home, Self-Care 01 Condition: Good Clinical Impression: UTI, Urinary tract infectious disease - Discharge Information Instructions: Urinary Tract Infection, Adult, [id number] Forms: ED Department Discharge Additional Instructions: 1) drink lots of liquids 2) recheck as needed rx given; bactrim DS bid x 20 Sepsis Event Note (ED) - Evaluation Sepsis Screening Result: No Definite Risk - Focused Exam Vital Signs: Vital Signs Temp Pulse Resp BP Pulse Ox 03/20/20 18:31 36.7 C 103 H 18 125/79 96 - My Orders Last 24 Hours: My Active Orders 03/20/20 18:50 CULTURE URINE [RM] Routine 03/20/20 19:23 Phenazopyridine [Urinary Pain Relief] 95 mg PO ONETIME ONE Sulfamethoxazole/Trimethoprim [Septra DS] 1 tab PO ONETIME ONE - Assessment/Plan Last 24 Hours: My Active Orders 03/20/20 18:50 CULTURE URINE [RM] Routine 03/20/20 19:23 Phenazopyridine [Urinary Pain Relief] 95 mg PO ONETIME ONE Sulfamethoxazole/Trimethoprim [Septra DS] 1 tab PO ONETIME ONE
[2020-03-20] MEDS: Sulfamethoxazole/Trimethoprim 800-160 MG Tab ONE (19:30)
[2020-03-20] MEDS: Sulfamethoxazole/Trimethoprim 800-160 MG Tab PO ONE (19:31)
[2020-03-20] MEDS: Phenazopyridine 95 MG Tab PO ONE (19:31)
== END 2020-03-20 19:36 | disposition home or self-care (01) ==
LOC: DL.ED 18:26
DX: N39.0 Urinary tract infection, site not specified (principal); I50.9 Heart failure, unspecified; I45.6 Pre-excitation syndrome; M32.9 Systemic lupus erythematosus, unspecified; F41.9 Anxiety disorder, unspecified; F32.9 Major depressive disorder, single episode, unspecified; F03.90 Unspecified dementia, unspecified severity, without behavioral disturbance, psychotic disturbance, mood disturbance, and anxiety; Z88.1 Allergy status to other antibiotic agents; Z88.5 Allergy status to narcotic agent; Z91.012 Allergy to eggs; Z91.030 Bee allergy status; Z79.899 Other long term (current) drug therapy
CPT/HCPCS: 81001; 87086; 99284; A9270